=== PATIENT | female | born 1940 | race African-American/Black ===

== ENCOUNTER 2023-02-09 13:59 | Emergency (ER) | payer OTHER ==
[~2023-02-09] VITALS: Ht 157.5 cm; Wt 109.0 kg
[2023-02-09 14:04] VITALS: O2SAT 100
[2023-02-09 15:12] LABS: BASOPHILS % 0.7 % (0.0-2.0); EOSINOPHILS % 5.2 % (0.0-5.0); HEMATOCRIT. 40.6 % (36.0-48.0); HEMOGLOBIN. 12.9 g/dL (12.0-16.0); LYMPHOCYTES % 19.8 % (20.0-50.0); MEAN CORPUSCULAR HEMOGLOBIN 31.9 pg (28.0-32.0); MEAN CORPUSCULAR VOLUME 100.3 fL (81.0-99.0); MEAN PLATELET VOLUME 8.2 fl (7.4-10.4); MONOCYTES % 9.4 % (2.0-8.0); NEUTROPHILS % 64.9 % (40.0-76.0); PLATELET 249 x1000/uL (130-400); RED BLOOD CELL COUNT 4.05 mill/uL (4.2-5.4); RED CELL DISTRIBUTION WIDTH 15.4 % (11.6-14.6)
[2023-02-09] MEDS ORDERED: MORPHINE SULFATE 2 MG/ML CPJ (NOT FOR IM USE) IV ONE (15:30)
[2023-02-09] MEDS ORDERED: ONDANSETRON HCL 4MG/2ML INJ IV ONE (15:30)
[2023-02-09 15:34] LABS: CHLORIDE 105 mEq/L (98-107)
[2023-02-09] MEDS ORDERED: ONDANSETRON HCL 4MG/2ML INJ IV NR (18:30)
[2023-02-09] MEDS ORDERED: MORPHINE SULFATE 2 MG/ML CPJ (NOT FOR IM USE) IV NR (18:30)
[2023-02-09] MEDS ORDERED: ENOXAPARIN 100MG/ML SYR SUBCUT ONE (19:30)
[2023-02-09] MEDS ORDERED: ASPIRIN 325MG EC TABLET PO ONE (19:30)
[2023-02-09] MEDS ORDERED: FUROSEMIDE 40MG/4ML VIAL IVP SCH (19:30)
[2023-02-09 22:46] VITALS: BP 131/84; PULSE 85; RESP 16; TEMP 98.6
== END 2023-02-09 23:07 | disposition short-term general hospital (02) ==
LOC: ER 13:59 → CANBEDREQ 02-10 20:32
DX: R07.89 Other chest pain (principal); R06.02 Shortness of breath; F03.90 Unspecified dementia, unspecified severity, without behavioral disturbance, psychotic disturbance, mood disturbance, and anxiety
CPT/HCPCS: 99285; 93970; 96374; 71045; 80053; 83880; 85025; 84484; 36415; 93005; 96372; J1650; J1940; J2270; J2405